=== PATIENT | female | born 1990 ===

== ENCOUNTER 2016-07-10 15:33 | Emergency (ER) | payer OTHER ==
[2016-07-10 15:49] VITALS: BP 113/79; RESP 18; TEMP 97.8
[2016-07-10] MEDS ORDERED: KETOROLAC TROMETHAMINE 30 MG/ML SOL IM ONE (16:10)
[2016-07-10] MEDS ORDERED: KETOROLAC TROMETHAMINE 30 MG/ML SOL ONE (16:12)
[2016-07-10 16:21] LABS: BASOPHILS % (AUTO) 0 % (0-3); EOSINOPHILS % (AUTO) 2 % (0-9); HEMATOCRIT 39 % (35-47); MEAN CORPUSCULAR HGB CONC 34.4 gm/dl (32.0-36.0); MONOCYTES % (AUTO) 4.3 % (0-12)
[2016-07-10 16:36] LABS: ALBUMIN 3.2 gm/dl (3.4-5.0)
[2016-07-10 16:57] VITALS: PULSE 95; O2SAT 100
== END 2016-07-10 16:52 | disposition home or self-care (01) ==
LOC: ED 15:33
DX: O04.6 Delayed or excessive hemorrhage following (induced) termination of pregnancy (principal)
CPT/HCPCS: 80053; 85025; 85610; 99283 ×2; J1885

== ENCOUNTER 2017-07-04 17:44 | Emergency (ER) | payer OTHER ==
[2017-07-04 18:04] VITALS: RESP 20; TEMP 96.8
[2017-07-04] MEDS ORDERED: APAP/OXYCODONE 325/5 TAB PO PRN (18:24)
[2017-07-04] MEDS ORDERED: LIDOCAINE HCL 2% GEL TOP ONE ×2 (18:24→18:28)
[2017-07-04] MEDS ORDERED: APAP/OXYCODONE 325/5 TAB ONE (18:28)
[2017-07-04] MEDS ORDERED: TDAP VACCINE 0.5 ML SUS IM ONE ×2 (18:54→18:56)
[2017-07-04 19:03] VITALS: BP 110/64; PULSE 72; O2SAT 96
== END 2017-07-04 19:00 | disposition home or self-care (01) | DRG 605 ==
LOC: ED 17:44
DX: S61.412A Laceration without foreign body of left hand, initial encounter (principal); W26.0XXA Contact with knife, initial encounter; Y93.G1 Activity, food preparation and clean up; Y99.0 Civilian activity done for income or pay
CPT/HCPCS: 90715; 99283